=== PATIENT | male | born 1965 | race African-American/Black ===

== ENCOUNTER 2023-01-30 07:37 | Outpatient (CLI) | payer OTHER | END 2023-01-30 07:38 | disposition home or self-care (01) | LOC: NM 07:37 | PROVIDERS: ATTEND Urology | DX: C61 Malignant neoplasm of prostate (principal) | CPT/HCPCS: 74178; 78306; A9503 ==

== ENCOUNTER 2023-05-03 06:26 | Day surgery (SDC) | payer OTHER ==
[2023-05-02 16:13] VITALS: BMI 32.6
[2023-05-03 08:03] LABS: Anion Gap 10 mmol/L (10-20); BUN (Urea Nitrogen) 10 mg/dL (8.4-25.7); Calc. Creatinine Clearance 82 mL/min (70-130); Calcium 8.7 mg/dL (7.8-10.44); Carbon Dioxide 26 mmol/L (22-29); Chloride 106 mmol/L (98-107); Estimated GFR 60; Glucose 92 mg/dL (70-105); Potassium 3.9 mmol/L (3.5-5.1); Sodium 138 mmol/L (136-145)
[2023-05-03] MEDS ORDERED: Adenosine 6 mg (2 mL) VIAL ONE (08:06)
[2023-05-03] MEDS ORDERED: Nitroglycerin 50 MG/250 ML BOT 250 ML ONE (08:06)
[2023-05-03] MEDS ORDERED: Heparin 10,000 UNITS/ 10 ML VIAL ONE (08:06)
[2023-05-03] MEDS ORDERED: Verapamil 5 MG/2 ML VIAL ONE (08:06)
[2023-05-03] MEDS ORDERED: fentaNYL 50 mcg/mL 1 mL Vial ONE (08:43)
[2023-05-03] MEDS ORDERED: Midazolam HCl 2 mg/2 ml Vial ONE (08:43)
[2023-05-03] MEDS ORDERED: TICAGRELOR 90 MG TABLET ONE (09:12)
[2023-05-03 09:16] LABS: #Eosinphils 0.1 thou/uL (0.0-0.7); #Monocytes 0.6 thou/uL (0.11-0.59); #Neutrophils 5.2 thou/uL (1.40-6.50); %Basophils 0.4 % (0.0-1.0); %Eosinophils 1.2 % (0.0-10.0); %Lymphocytes 21.8 % (21.0-51.0); %Monocytes 7.6 % (0.0-10.0); %Neutrophils 68.7 % (42.0-75.0); Hematocrit 42.7 % (42.0-52.0); Hemoglobin 14.2 g/dL (14.0-18.0); Mean Corpuscular HGB CONC 33.3 g/dL (32.0-36.0); Mean Corpuscular Hemoglobin 28.6 pg (27.0-31.0); Mean Corpuscular Volume 85.9 fl (78.0-98.0); Mean Platelet Volume 10.4 fL (7.4-10.4); Platelet Count 329 10x3/uL (130-400); RBC Distribution Width 13.9 % (11.5-14.5); Red Blood Cell (RBC) Count 4.97 mill/uL (4.70-6.10); White Blood Cell (WBC) Count 7.5 10x3/uL (4.8-10.8)
== END 2023-05-03 13:10 | disposition home or self-care (01) ==
LOC: CCL 06:26
PROVIDERS: ATTEND Internal Medicine Cardiovascular Disease
PROC: 4A023N7 Measurement of Cardiac Sampling and Pressure, Left Heart, Percutaneous Approach (ICD-10-PCS; principal; 2023-05-03)
DX: I12.9 Hypertensive chronic kidney disease with stage 1 through stage 4 chronic kidney disease, or unspecified chronic kidney disease (principal); N18.30 Chronic kidney disease, stage 3 unspecified; R06.02 Shortness of breath; R94.39 Abnormal result of other cardiovascular function study; E78.5 Hyperlipidemia, unspecified; R97.20 Elevated prostate specific antigen [PSA]; G47.00 Insomnia, unspecified; N52.9 Male erectile dysfunction, unspecified; F43.10 Post-traumatic stress disorder, unspecified; M51.36 Other intervertebral disc degeneration, lumbar region
CPT/HCPCS: 80048; 85025; C1769; C1874; C1887; C1894; J0153; J1644; J2250; J3010